=== PATIENT | female | born 1985 | race Caucasian/White ===

== ENCOUNTER → 2016-10-27 | Outpatient (CLI) | payer BC, MEDICAID ==
[~2016-10-27] MED LIST: ALBU8.5H2 IH; DCS100C PO; HYDR-3454 PO; HYDR1TAB8 OP; LRT10T PO; NITR-65 PO; ONDA-42; ONDA-42 SL; SULF-222 PO
--- OUTSIDE RECORDS SUMMARY | 2016-10-27 11:25 | XMS REPORT | Continuity of Care Document ---
Author Author [facility] Organization [facility] Address Unknown Phone Unavailable Care Team Providers Care Animal Taxonomist Name Role Phone PCP Unavailable Source Comments Some departments are not documenting in the electronic medical record. If you do not see the information that you expected, contact Release of Information in the Health Information Management department at [phone] for further assistance in locating additional records.[facility] Active Allergies and Adverse Reactions Not on File Current Medications Not on file Active Problems Not on file Social History Tobacco Use Types Packs/Day Years Used Date Never Assessed Plan of Care Health Maintenance Due Date Last Done Comments Physical (Comprehensive) 1990 Exam Pertussis Vaccine 1994 Tetanus Vaccine 2000 Cervical Cancer Screening 2004 Influenza Vaccine 04/22/2016 Results from Last 3 Months Not on file
--- NOTE | 2016-10-27 18:29 | Diagnostic Imaging Report ---
PROCEDURE: US OB SINGLE FETUS <14 WKS. TECHNIQUE: Multiple real-time grayscale images were obtained over the gravid uterus in various projections. INDICATION: Threatened miscarriage. FINDINGS: There are no prior studies available for comparison. There is a gestational sac within the uterus containing a single live fetus. heart motion is noted and a rate of 155 bpm is recorded. The crown-rump length suggests the estimated gestational age is 8 weeks 1 day +/- 1 week. There are no obvious abnormalities identified. There is a small hypoechoic area adjacent to the gestational sac. This measures 1.1 x 4.2 cm. This may represent a small subchorionic hemorrhage. The amniotic fluid volume is within normal limits. At this time, it is not certain where the placenta will develop. There is no pelvic mass or free fluid collection evident. IMPRESSION: 1. There is a single live intrauterine of approximately 8 weeks 1 day gestation +/- 1 week. EDC is June 07, 2017. 2. There are no obvious abnormalities identified. If a more sensitive evaluation of the anatomy is desired, then a short-term (10-12 weeks) follow-up ultrasound exam will be recommended for further study. 3. There does appear to be a small subchorionic hemorrhage. Dictated by: Dictated on workstation # [id number]
== END ==
LOC: RAD 11:21
PROVIDERS: ATTEND Family Medicine
DX: O20.0 Threatened abortion (principal)
CPT/HCPCS: 76801

== ENCOUNTER → 2016-11-23 | Outpatient (CLI) | payer BC, MEDICAID ==
--- NOTE | 2016-11-23 14:24 | Diagnostic Imaging Report ---
PROCEDURE: US OB SINGLE FETUS <14 WKS. TECHNIQUE: Multiple real-time grayscale images were obtained over the gravid uterus in various projections. INDICATION: survey. FINDINGS: The previous OB ultrasound exam performed on 10/27/2016 noted a single live fetus of approximately 8 weeks 1 day gestation +/- 1 week. There were no obvious abnormalities identified. On this exam, the fetus is again identified. The fetus is in variable presentation. heart motion is noted and a rate of 146 bpm is recorded. There are no obvious abnormalities identified. The crown-rump length suggests the estimated gestational age is 11 weeks 5 days. This would correspond to the measurements of the previous exam. The growth parameters are not obtained for this exam otherwise. There is no obvious abnormality identified. As suggested on the previous study, if a more sensitive evaluation of anatomy is desired, then a short-term (6-8 weeks) follow-up ultrasound exam should be obtained. The amniotic fluid volume is within normal limits. The placenta seems to be developing anteriorly. There is still unfused amnion evident. This is not unusual for a gestation of this age. The prior exam did raise the question of a small subchorionic hemorrhage. There is no sign of subchorionic hemorrhage on this study. IMPRESSION: 1. There is a single live fetus of approximately 11 weeks 5 days gestation +/- 1 week. The EDC remains June 07, 2017. 2. There are no obvious abnormalities identified. Recommendations as above. Dictated by: Dictated on workstation # [id number]
== END ==
LOC: RAD 09:18
PROVIDERS: ATTEND Family Medicine
DX: Z34.81 Encounter for supervision of other normal pregnancy, first trimester (principal); Z3A.08 8 weeks gestation of pregnancy
CPT/HCPCS: 76801

== ENCOUNTER → 2017-01-14 | Outpatient (CLI) | payer BC, MEDICAID ==
--- NOTE | 2017-01-14 18:55 | Diagnostic Imaging Report ---
PROCEDURE: US left lower extremity venous. INDICATION: Left leg numbness. COMPARISON: None. TECHNIQUE: The left lower extremity deep venous system was interrogated from the common femoral vein through the popliteal vein. These images were assessed for grayscale appearance, color and spectral Doppler blood flow, compression, and augmentation. FINDINGS: There is no evidence of intraluminal filling defect. Normal compression and augmentation is noted throughout. Soft tissues are unremarkable. IMPRESSION: 1. No sonographic evidence of deep venous thrombosis in the left lower extremity. Dictated by: Dictated on workstation # [id number]
== END ==
LOC: RAD 17:58
PROVIDERS: ATTEND Family Medicine
DX: R20.0 Anesthesia of skin (principal)

== ENCOUNTER → 2017-01-24 | Outpatient (CLI) | payer BC, MEDICAID ==
[~2017-01-24] MED LIST changes: +PREN-8 PO
--- NOTE | 2017-01-24 16:21 | Diagnostic Imaging Report ---
INDICATION: Undergoing anatomical assessment. TECHNIQUE: Multiple real-time grayscale images were obtained over the gravid uterus. COMPARISON: None. FINDINGS: Placenta is posterior without evidence for previa. Normal amount of amniotic fluid appears to be present. Cervical length is 2.9 cm. There is a suggestion of asymmetric widening at the level of the internal os with suggestion of some funneling. This extends for approximately 15 mm in length. The visualized anatomical structures appearing unremarkable. However, the urinary bladder as well as the intracranial structures are overall limited in assessment given their positioning. Biometrical measurements are as follows: Biparietal 4.8 cm, age 20 weeks 5 days. Head circumference 17.8 cm, age 20 weeks 2 days. Abdominal circumference 14.6 cm, age 20 weeks 0 days. Femur length 3.6 cm, age 21 weeks 4 days. Sonographic estimate age: 20 weeks 5 days. Sonographic estimated date of delivery: 06-08-17. Estimated Weight: 367 gm (+/- 54 gm). LMP percentile: 48%. heart rate: 149 beats per minute. Cervical length: 2.9 cm. number: 1 of 1. IMPRESSION: Single viable intrauterine with an estimated age of 20 weeks 5 days for an estimated date of delivery June 08, 2017. Current estimated weight at the 48th percentile. No abnormalities noted at this time. However, the bladder and portions of the intracranial structures are not well assessed given positioning. Additionally, there is some early funneling suggested about the internal portions of the cervix. Consideration may be given to short-term followup imaging for reassessment. Dictated by: Dictated on workstation # [id number]
== END ==
LOC: RAD 14:10
PROVIDERS: ATTEND Family Medicine
DX: Z36 Encounter for antenatal screening of mother (principal); Z3A.20 20 weeks gestation of pregnancy
CPT/HCPCS: 76805; 76817

== ENCOUNTER 2017-01-26 15:02 | Outpatient (CLI) | payer BC, MEDICAID ==
[~2017-01-26] VITALS: Ht 165.1 cm; Wt 87.1 kg
[~2017-01-26 15:02] MED LIST changes: -PREN-8 PO
[2017-01-26 15:11] VITALS: BP 120/68
[2017-01-26] MEDS ORDERED: PREN-8 PO (15:15)
[2017-01-26 15:40] LABS: BASOPHILS % (AUTO) 0 % (0-10); EOSINOPHILS % (AUTO) 0 % (0-10); LYMPHOCYTES # (AUTO) 1.5 X 10^3 (1.0-4.0); LYMPHOCYTES % (AUTO) 12 % (12-44); MEAN CORPUSCULAR HEMOGLOBIN 34 PG (25-34); MEAN CORPUSCULAR HGB CONC 34 G/DL (32-36); MEAN CORPUSCULAR VOLUME 100 FL (80-99); MEAN PLATELET VOLUME 10.8 FL (7.4-10.4); MONOCYTES # (AUTO) 0.5 X 10^3 (0.0-1.0); MONOCYTES % (AUTO) 4 % (0-12); NEUTROPHILS # (AUTO) 10.1 X 10^3 (1.8-7.8); NEUTROPHILS % (AUTO) 83 % (42-75); PLATELET COUNT 176 10^3/uL (130-400); RED BLOOD COUNT 3.82 10^6/uL (4.35-5.85); RED CELL DISTRIBUTION WIDTH 14.7 % (10.0-14.5); WHITE BLOOD COUNT 12.1 10^3/uL (4.3-11.0)
[2017-01-27] MEDS ORDERED: HYDR-3812 PO (07:45)
[2017-01-27] MEDS ORDERED: INDO25CA PO (07:45)
== END 2017-01-26 15:33 | disposition home or self-care (01) ==
LOC: PREOP 15:02
PROVIDERS: ATTEND Obstetrics & Gynecology
DX: Z01.812 Encounter for preprocedural laboratory examination (principal); Z11.2 Encounter for screening for other bacterial diseases; O26.872 Cervical shortening, second trimester; Z3A.20 20 weeks gestation of pregnancy
CPT/HCPCS: 36415; 80306; 85025; 87081

== ENCOUNTER 2017-01-27 06:05 | Day surgery (SDC) | payer BC, MEDICAID ==
[~2017-01-27] VITALS: Ht 165.1 cm; Wt 87.1 kg
[~2017-01-27 06:05] MED LIST changes: +PREN-8 PO
[2017-01-27] MEDS: LACTATED RINGERS 1,000 ML IV PRN ×2 (06:30→07:00)
[2017-01-27 06:53] VITALS: BP 105/61
[2017-01-27] MEDS ORDERED: LACTATED RINGERS 1,000 ML IV ONE (06:57)
[2017-01-27] MEDS ORDERED: fentaNYL INJECTION 100 MCG/2 ML AMP ONE (06:57)
--- NOTE | 2017-01-27 07:41 | Progress Note-Pre Operative ---
Pre-Operative Progress Note H&P Reviewed The H&P was reviewed, patient examined and no changes noted. Date Seen by Provider: Jan 27, 2017 Time Seen by Provider: 07:40 Date H&P Reviewed: Jan 27, 2017 Time H&P Reviewed: 07:41 Pre-Operative Diagnosis: Shortened cervix, hx of leep LEXII ORTEGA DO Jan 27, 2017 7:41 am
[2017-01-27] MEDS ORDERED: D5 LR IV SOLUTION 1,000 ML IV SCH (07:42)
--- NOTE | 2017-01-27 07:44 | Discharge Inst-Women's Service ---
Discharge Inst-Women's Serv Depart Medication/Instructions New, Converted or Re-Newed RX: RX on Chart Consults/Follow Up Additional Follow Up: Yes Orders/Referrals Dr. Ortega in 7-10 days Activity Activity: Activity as Tolerated NO SMOKING: NO SMOKING Nothing Inside Vagina: No Douching, No [place], No Tampons Diet Discharge Diet: No Restrictions Symptoms to Report to : Bleeding Excessive, Pain Increased, Fever Over 101 Degrees F, Vaginal Bleeding Increase, Questions/Concerns For Any Problems or Questions: Contact Your Physician Skin/Wound Care Bathing Instructions: Shower (x 2 weeks) LEXII ORTEGA DO Jan 27, 2017 7:44 am
[2017-01-27] MEDS ORDERED: HYDROcodone/APAP 5 MG/325 MG (LORTAB) TAB PO PRN (07:45)
[2017-01-27] MEDS ORDERED: ONDANSETRON 4 MG/2 ML (SDV) Z0FRAN IVP PRN ×2 (07:45→08:30)
[2017-01-27] MEDS ORDERED: HYDR-3812 PO (07:45)
[2017-01-27] MEDS ORDERED: INDOMETHACIN 25 MG (INDOCIN) CAP PO ONE (07:45)
[2017-01-27] MEDS ORDERED: INDO25CA PO (07:45)
[2017-01-27 09:05] VITALS: BP 113/67
--- NOTE | 2017-01-27 09:11 | Progress Note-Post Operative ---
Post-Operative Progess Note Surgeon (s)/Ip Network Architect (s) Surgeon LEXII ORTEGA DO Ip Network Architect: none Pre-Operative Diagnosis Shortened cervix, hx of leep Post-Operative Diagnosis same Procedure & Operative Findings Date of Procedure 01/27/17 Procedure Performed/Findings Lopez cerclage Procedure in detail: Patient was taken to the operating room where spinal analgesia is found be adequate. She's placed in the dorsal lithotomy position, prepped and draped in normal sterile fashion. The bladder was emptied using straight catheterization and a total of 200 mL's of clear urine is emptied. I didn't perform a bimanual massage and the patient after heart tones are confirmed using Doppler auscultation in the 140s. The cervix is closed, however, there is no significant degree of thickness noted. I would assess it is 80-70 percent effaced. I then placed a weighted speculum into the patient's vagina, a right angle retractor is used to visualize the cervix. It is grasped at the 12 o' clock position using a ring forcep. A Lopez cerclage was placed using 4 separate throws of the needle, and using #1 [place] dyed suture. It is tied at the 12 o'clock position after the ring forcep was removed. 2 separate knots are placed for easy identification. The vagina is copiously irrigated using normal saline and there is no active bleeding noted from the cerclage. All other insurance are removed from the patient's vagina. The patient is examined again after the procedures complete. Cerclage is noted in place with minimal tension and appropriate placement and cervical thickness. The patient tolerated the procedure well and is taken to the recovery area in stable condition. heart tones are again obtained after the procedures complete and found in the 140s. Anesthesia Type spinal Estimated Blood Loss Estimated blood loss (mL): 20 mL Specimens/Packing Specimens Removed none LEXII ORTEGA DO Jan 27, 2017 9:11 am
[2017-01-27 09:35] VITALS: BP 115/66
[2017-01-27 10:05] VITALS: BP 109/61
[2017-01-27 13:00] VITALS: BP 109/61
== END 2017-01-27 13:00 | disposition home or self-care (01) ==
LOC: SDC 06:05
PROVIDERS: ATTEND Obstetrics & Gynecology
DX: O26.872 Cervical shortening, second trimester (principal); O34.42 Maternal care for other abnormalities of cervix, second trimester; O99.512 Diseases of the respiratory system complicating pregnancy, second trimester; J45.909 Unspecified asthma, uncomplicated; Z3A.20 20 weeks gestation of pregnancy
CPT/HCPCS: 86850; 86900; 86901

== ENCOUNTER → 2017-03-09 | Outpatient (CLI) | payer BC, MEDICAID ==
[~2017-03-09] MED LIST changes: +HYDR-3812 PO; +INDO25CA PO
--- NOTE | 2017-03-09 18:20 | Diagnostic Imaging Report ---
INDICATION: Followup bladder and head structures. The patient had cerclage procedure of the cervix performed. TECHNIQUE: Multiple real-time grayscale images were obtained over the gravid uterus. COMPARISON: 01/24/2017 FINDINGS: The heart rate is 147 beats per minute. The placenta is posterior and is fundal. No placenta previa. The bladder and the intracranial structures appear grossly unremarkable. No evidence of hydrocephalus. JOSE is 13.7 cm. The head position is cephalic. The cervix is not well demonstrated as its obscured by the head. IMPRESSION: Live intrauterine . The head and the bladder are better seen on the current exam with no definite abnormality. Dictated by: Dictated on workstation # [id number]
== END ==
LOC: RAD 10:21
PROVIDERS: ATTEND Obstetrics & Gynecology
DX: Z36 Encounter for antenatal screening of mother (principal); Z3A.00 Weeks of gestation of pregnancy not specified
CPT/HCPCS: 76816

== ENCOUNTER 2017-03-17 15:32 | Outpatient (CLI) | payer BC, MEDICAID ==
[~2017-03-17] VITALS: Ht 165.1 cm; Wt 93.5 kg
[2017-03-17] VITALS (8 sets, daily range): BP systolic 121–148; BP diastolic 57–78
[2017-03-17] MEDS ORDERED: D5 LR IV SOLUTION 1,000 ML IV SCH (16:00)
[2017-03-17] MEDS ORDERED: D5 LR IV SOLUTION 1,000 ML IV ONE (16:01)
[2017-03-17] MEDS ORDERED: BETAMETHASONE ACE/NA PHOS 6 MG/ML (CELESTONE SOLUSPAN) ONE (16:03)
[2017-03-17] MEDS ORDERED: MAGNESIUM 4 GM/100 ML IVPB 100 ML IV ONE (16:03)
[2017-03-17] MEDS ORDERED: MAGNESIUM 2 GM/50 ML IVPB 50 ML IV ONE (16:04)
[2017-03-17] MEDS ORDERED: MAGNESIUM SULFATE DRIP 500 ML IV ONE (16:04)
[2017-03-17] MEDS ORDERED: AMPICILLIN 2000 MG INJECTION (IM/IV) ONE (16:11)
[2017-03-17] MEDS ORDERED: NS (IVPB) 50 ML ONE (16:12)
[2017-03-17] MEDS ORDERED: AMPICILLIN INJECTION 2,000 MG in NS (IVPB) 50 ML IV ONE (16:22)
[2017-03-17] MEDS ORDERED: MAGNESIUM 2 GM/50 ML IVPB 2 GM in MAGNESIUM 4 GM/100 ML IVPB 100 ML IV ONE (16:25)
[2017-03-17] MEDS ORDERED: BETAMETHASONE ACE/NA PHOS 6 MG/ML (CELESTONE SOLUSPAN) IM SCH (16:28)
[2017-03-17] MEDS ORDERED: AZITHROMYCIN INJECTION 500 MG in NS (IVPB) 250 ML IV NR (16:30)
--- NOTE | 2017-03-17 17:03 | History & Physical-OB ---
OB - Chief Complaint & HPI Date/Time Date of Admission: Date of Admission: 03/17/2017 Time Seen by Provider: 16:00 Chief Complaint/History OB-Reason for Admission/Chief: Rupture of Membranes Hx : 2 Hx Para: 0 Expected Date of Delivery: Jun 12, 2017 Gestational Age in Weeks: 27 Gestational Age in Days: 4 Other reason for admission: This 31-year-old female is a patient established to my office who is undergoing care which was complicated by shortened cervix and history of cervical incompetence. The patient underwent a cerclage placement at 18 weeks. Since that time her has been uncomplicated. The patient has not had any episodes of bleeding, contractions, or any other signs of labor. The patient reports to me and the nurse that she was this week, and despite my restrictions for complete pelvic rest, decided to proceed with intercourse with her new denied of their marriage. The patient reports the next day which was today, she was on her feet working when she had a gush of fluid that she initially thought was bladder leakage. However, she continued to drain fluid soaking her close and proceeded to the emergency department with suspicion for rupture membranes. Admission Nurse Assessment Rev: Yes History of Labs O neg Antibody neg 1 hr GTT 89 Allergies and Home Medications Allergies Coded Allergies: No Known Drug Allergies (Unverified , 05/11/13) Home Medications Albuterol 8.5 Gm Hfa.aer.ad, 2 PUFF IH Q4H PRN for WHEEZING, (Reported) PRN WHEEZES Hydrocodone/Acetaminophen 1 Each Tablet, 1 TAB PO Q4H PRN for PAIN-MODERATE, #15 Prescribed by: LEXII ORTEGA on 01/27/17 0745 Indomethacin 25 Mg Capsule, 25 MG PO Q6H, #6 Prescribed by: LEXII ORTEGA on 01/27/17 0745 Loratadine 10 Mg Box, 10 MG PO DAILY, (Reported) Vit W-Ca,Fe,FA(<1 mg) 1 Each Tablet, 1 EACH PO DAILY, (Reported) OB - History Hx of Present Care: Yes Ultrasounds: Abnormal US findings (shortened cervix) Obstetrical Complications: Other (cerclage placement at 18 weeks) Medical Complications: None Delivery History Hx Blood Disorders: No Adverse Rxn to Tranfusion: No Patient Past Medical History History of infertility, endometriosis Immunizations Date of Pneumonia Vaccine: Feb 19, 2014 Date of Influenza Vaccine: May 22, 2014 OB - Admission Exam Physical Exam Date Seen by Provider: Mar 17, 2017 Time Seen by Provider: 16:00 HEENT: NCAT Heart: Rhythm Normal Lungs: Clear Abdomen: Gravid Extremities: Normal Reflexes: Normal Cervical Dilatation: None (sterile speculum exam done cerclage in place, no bleeding, no dilation noted on speculum exam) Amniotic Fluid: Clear Heart Rate: 130's Accelerations: Accelerations Present Decelerations: No Decelerations Short Term Variability: Present Continuous Mining 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
[2017-03-17] MEDS ORDERED: MAGNESIUM SULFATE DRIP 500 ML IV SCH (17:10)
--- NOTE | 2017-03-17 17:11 | Discharge Summary ---
Diagnosis/Chief Complaint Date of Admission 03/17/2017 Date of Discharge 03/17/2017 Discharge Date: Mar 17, 2017 Discharge Time: 17:30 Admission Diagnosis Admission Diagnosis Rupture of membranes 27 weeks, PTL Discharge Diagnosis Same Reason Hospital Visit This 31-year-old female is a patient established to my office who is undergoing care which was complicated by shortened cervix and history of cervical incompetence. The patient underwent a cerclage placement at 18 weeks. Since that time her has been uncomplicated. The patient has not had any episodes of bleeding, contractions, or any other signs of labor. The patient reports to me and the nurse that she was this week, and despite my restrictions for complete pelvic rest, decided to proceed with intercourse with her new denied of their marriage. The patient reports the next day which was today, she was on her feet working when she had a gush of fluid that she initially thought was bladder leakage. However, she continued to drain fluid soaking her close and proceeded to the emergency department with suspicion for rupture membranes. Discharge Summary Hospital Course Hospital Course Patient admitted IV fluids started and CBC with type and screen sent. She was started on ampicillin and azithromycin for latency. Betamethasone 12 mg 1 dose was given. Magnesium sulfate 6 g bolus given IV with a 2 g infusion rate thereafter. Bedside ultrasound performed which confirmed vertex presentation. Sterile speculum exam performed to confirm cerclages in place with no evidence of bleeding or tearing of the cervix, no evidence of cervical dilatation Procedures None. Discharge Physical Examination Allergies: Coded Allergies: No Known Drug Allergies (Unverified , 05/11/13) General Appearance: Alert, Oriented X3 HEENT: Atraumatic Respiratory: Clear to Auscultation Cardiovascular: Regular Rate Abdominal: Other (gravid) Psych/Mental Status: Mental Status NL Discussion & Recommendations Recommendation was made to the patient to transfer to a higher level tertiary care center. [facility] was the first place that I contacted and I spoke with Dr. Gonsalez who notify me the absence of a perinatologist at this time. The facility still has neonatology capabilities however. I discussed the patient possible transfer to [place] or [place], however the patient and her family are concerned about a prolonged stay in the NICU and proximity of those locations to their home. Dr. Gonsalez was willing to accept transfer, ambulance service notified and transfer initiated with IV fluids running including the magnesium sulfate infusion. Discharge Home Medications Reviewed and agree with Discharge Medication list on patient's Discharge Instruction sheet Instructions to Patient/Family Please see electonic discharge instructions given to patient. Clinical Quality Measures DVT/VTE Risk/Contraindication: VTE Present on Admission: No RFS Level Per Nursing on Admit: 1=Low/No VTE PPX Contraindications-Pharm: Pt at low risk Contraindications-Mechi: Pt at low risk LEXII ORTEGA DO Mar 17, 2017 5:11 pm
[2017-03-17 17:18] LABS: BASOPHILS % (AUTO) 0 % (0-10); EOSINOPHILS # (AUTO) 0.1 10^3/uL (0.0-0.3); EOSINOPHILS % (AUTO) 0 % (0-10); LYMPHOCYTES # (AUTO) 1.6 X 10^3 (1.0-4.0); LYMPHOCYTES % (AUTO) 12 % (12-44); MEAN CORPUSCULAR HEMOGLOBIN 34 PG (25-34); MEAN CORPUSCULAR HGB CONC 34 G/DL (32-36); MEAN CORPUSCULAR VOLUME 99 FL (80-99); MEAN PLATELET VOLUME 11.3 FL (7.4-10.4); MONOCYTES # (AUTO) 0.7 X 10^3 (0.0-1.0); MONOCYTES % (AUTO) 5 % (0-12); NEUTROPHILS # (AUTO) 11.2 X 10^3 (1.8-7.8); NEUTROPHILS % (AUTO) 83 % (42-75); PLATELET COUNT 158 10^3/uL (130-400); RED CELL DISTRIBUTION WIDTH 14.3 % (10.0-14.5); WHITE BLOOD COUNT 13.5 10^3/uL (4.3-11.0)
== END 2017-03-17 17:55 | disposition short-term general hospital (02) ==
LOC: LDRP 15:32 → WSo 15:32 → ENPENDDIS 17:30 → WSo 17:55
PROVIDERS: ATTEND Obstetrics & Gynecology
DX: O42.012 Preterm premature rupture of membranes, onset of labor within 24 hours of rupture, second trimester (principal); Z3A.27 27 weeks gestation of pregnancy
CPT/HCPCS: 36415; 85025; 87081; 96361; 96372; 96374; 96375; 96376; 99213

== ENCOUNTER 2017-03-26 18:50 | Emergency (ER) | payer BC, MEDICAID ==
[~2017-03-26] VITALS: Ht 165.1 cm; Wt 93.5 kg
[2017-03-26 19:50] LABS: BASOPHILS % (AUTO) 0 % (0-10); EOSINOPHILS # (AUTO) 0.1 10^3/uL (0.0-0.3); EOSINOPHILS % (AUTO) 1 % (0-10); LYMPHOCYTES # (AUTO) 1.7 X 10^3 (1.0-4.0); LYMPHOCYTES % (AUTO) 12 % (12-44); MEAN CORPUSCULAR HEMOGLOBIN 34 PG (25-34); MEAN CORPUSCULAR HGB CONC 33 G/DL (32-36); MEAN CORPUSCULAR VOLUME 103 FL (80-99); MEAN PLATELET VOLUME 9.4 FL (7.4-10.4); MONOCYTES # (AUTO) 0.7 X 10^3 (0.0-1.0); MONOCYTES % (AUTO) 5 % (0-12); NEUTROPHILS # (AUTO) 11.1 X 10^3 (1.8-7.8); NEUTROPHILS % (AUTO) 81 % (42-75); PLATELET COUNT 280 10^3/uL (130-400); RED BLOOD COUNT 2.78 10^6/uL (4.35-5.85); RED CELL DISTRIBUTION WIDTH 14.7 % (10.0-14.5); WHITE BLOOD COUNT 13.7 10^3/uL (4.3-11.0)
[2017-03-26 20:10] LABS: ALANINE AMINOTRANSFERASE 17 U/L (0-55); ALBUMIN 2.8 GM/DL (3.2-4.5); ANION GAP 10 MMOL/L (5-14); ASPARTATE AMINO TRANSFERASE 16 U/L (5-34); BILIRUBIN,TOTAL 0.5 MG/DL (0.1-1.0); BLOOD UREA NITROGEN 12 MG/DL (7-18); BUN/CREATININE RATIO 16; CALCIUM 8.9 MG/DL (8.5-10.1); CARBON DIOXIDE 26 MMOL/L (21-32); CHLORIDE 104 MMOL/L (98-107); CREATININE SERUM 0.74 MG/DL (0.60-1.30); GFR ESTIMATED > 60; GLUCOSE 101 MG/DL (70-105); POTASSIUM 3.6 MMOL/L (3.6-5.0); SODIUM 140 MMOL/L (135-145); TOTAL PROTEIN 5.4 GM/DL (6.4-8.2)
[2017-03-26] MEDS ORDERED: MILK OF MAGNESIA 400 MG/5 ML 30 ML UDC PO ONE (20:15)
[2017-03-26] MEDS ORDERED: DOCUSATE SODIUM 100 MG (COLACE) CAP PO ONE (20:15)
[2017-03-26 20:21] LABS: BILIRUBIN,URINE NEGATIVE (NEGATIVE); KETONES,URINE NEGATIVE (NEGATIVE); LEUKOCYTE ESTERASE ,URINE 1+ (NEGATIVE); NITRITE,URINE POSITIVE (NEGATIVE); PH,URINE 7 (5-9); PROTEIN,URINE 4+ (NEGATIVE); UROBILINOGEN,URINE NORMAL (NORMAL)
[2017-03-26] MEDS ORDERED: TRIM/SULFAMETH 160/800 (SEPTRA DS) TAB PO STA (20:34)
[2017-03-26] MEDS ORDERED: SULF1TAB35 PO (21:18)
--- NOTE | 2017-03-26 21:19 | ED GU-Female ---
General Chief Complaint: Abdominal/GI Problems Stated Complaint: SHARP STOMACH PAIN (HAD ON TUESDAY) Nursing Triage Note: patient reports having a on tuesday and was released tuesday, patient reports was trying to have a BM about 30 min [employer] and developed diffuse abdomen pain Nursing Sepsis Screen: No Definite Risk History of Present Illness Time seen by provider: 19:15 Initial Comments Evaluation for lower abdominal pain. Patient had emergent on 03/20/17 at approximately 27 weeks 3 days, at [place] by Dr. Monten[place]. The baby did not survive. She was discharged on 03/23/17. There was an injury to her bladder, that required repair and indwelling Jiménez catheter. She denies bowel movement today. She is not taking stool softeners as directed at time of discharge. Timing/Duration: just prior to arrival Severity/Quality: mild Location: RLQ, LLQ Radiation: none Activities at Onset: other (attempting to defecate) Prior Genitourinary Problems: recent trauma Associated Symptoms: denies symptoms Allergies and Home Medications Allergies Coded Allergies: No Known Drug Allergies (Unverified , 05/11/13) Home Medications Albuterol 8.5 Gm Hfa.aer.ad, 2 PUFF IH Q4H PRN for WHEEZING, (Reported) PRN WHEEZES Hydrocodone/Acetaminophen 1 Each Tablet, 1 TAB PO Q4H PRN for PAIN-MODERATE, #15 Prescribed by: LEXII ELLISON on 01/27/17 0745 Indomethacin 25 Mg Capsule, 25 MG PO Q6H, #6 Prescribed by: LEXII ELLISON on 01/27/17 0745 Loratadine 10 Mg Box, 10 MG PO DAILY, (Reported) Vit W-Ca,Fe,FA(<1 mg) 1 Each Tablet, 1 EACH PO DAILY, (Reported) Sulfamethoxazole/Trimethoprim 1 Each Tablet, 1 EACH PO BID, #14 Ref 0 Prescribed by: SHANNAN ATKINSON on 03/26/172117 Constitutional: no symptoms reported, see HPI Gastrointestinal: RLQ, LLQ, see HPI Genitourinary: see HPI, other (indwelling catheter with leg bag) : No Past Uqutelb-Efxudm-Ydqjii Hx Patient Social History Alcohol Use: Denies Use Recreational Drug Use: No Smoking Status: Current Everyday Smoker Type Used: Cigarettes Recent Foreign Travel: No Contact w/Someone Who Travel: No Recent Infectious Disease Expo: No Recent Hopitalizations: No Immunizations Up To Date Date of Pneumonia Vaccine: Feb 19, 2014 Date of Influenza Vaccine: May 22, 2014 Seasonal Allergies Seasonal Allergies: Yes Surgeries HX Surgeries: Yes (right ankle screw, D&C, laparoscopy) Surgeries: Section, Gallbladder, Orthopedic Respiratory Hx Respiratory Disorders: Yes (exercise induced asthma, ) Respiratory Disorders: Asthma Cardiovascular Hx Cardiac Disorders: No Neurological Hx Neurological Disorders: No Reproductive System : No Female Reproductive Disorders: Endometriosis Genitourinary Hx Genitourinary Disorders: No Genitourinary Disorders: UTI-Chronic Gastrointestinal Hx Gastrointestinal Disorders: No Musculoskeletal Hx Musculoskeletal Disorders: No Endocrine Hx Endocrine Disorders: No HEENT HX ENT Disorders: No Cancer Hx Cancer: No Psychosocial Hx Psychiatric Problems: Yes Behavioral Health Disorders: Anxiety, Depression Integumentary HX Skin/Integumentary Disorder: No Blood Transfusions Hx Blood Disorders: No Adverse Reaction to a Blood Tr: No Reviewed Nursing Assessment Reviewed/Agree w Nursing PMH: Yes Family Medical History Family Medial History: Abdominal aortic aneurysm Alcoholism Cancer Cancer of colon Family history: Allergy Family history: Arthritis Family history: Asthma Family history: Breast disease Family history: Diabetes mellitus Family history: Gastrointestinal disease Family history: Hypertension Heart disease History of - respiratory disease Infertile No Family History of: Trousdale's disease Aphasia Cataract Chest pain Congenital heart disease Congestive heart failure Cystic fibrosis Dementia Dysphagia Family history: Alzheimer's disease Family history: Cardiovascular disease Family history: Coronary thrombosis Family history: Glaucoma Family history: Osteoporosis Family history: Thyroid disorder Headache Hearing loss Hereditary disease History of - anemia History of - disorder Human immunodeficiency virus (HIV) seropositivity Hypercholesterolemia Kidney disease Malignant neoplasm of lung Myocardial infarction Parkinson's disease Prostate cancer Psychotic disorder Seizure disorder Stroke Tuberculosis Visual impairment Physical Exam Vital Signs Vital Sign - Last 12Hours 03/26/17 19:21 Temp 98.4 Pulse 75 Resp 18 B/P (MAP) 131/79 Pulse Ox 100 Capillary Refill : Less Than 3 Seconds General Appearance: WD/WN, no apparent distress Neck: non-tender, full range of motion, normal inspection Cardiovascular: normal peripheral pulses, regular rate, rhythm, no edema, no murmur Respiratory: chest non-tender, lungs clear, normal breath sounds Gastrointestinal: normal bowel sounds, soft, No guarding, No rebound, other (C- section incision intact with no drainage, erythema, warmth, fluctuance or induration.) Neurologic/Psychiatric: no motor/sensory deficits, alert, normal mood/affect, oriented x 3 Skin: normal color, warm/dry Progress/Results/Core Measures Results/Orders Lab Results Laboratory Tests Test 03/26/17 19:42 03/26/17 20:14 Range/Units White Blood Count 13.7 H 4.3-11.0 10^3/uL Red Blood Count 2.78 L 4.35-5.85 10^6/uL Hemoglobin 9.3 L 11.5-16.0 G/DL Hematocrit 29 L 35-52 % Mean Corpuscular Volume 103 H 80-99 FL Mean Corpuscular Hemoglobin 34 25-34 PG Mean Corpuscular Hemoglobin Concent 33 32-36 G/DL Red Cell Distribution Width 14.7 H 10.0-14.5 % Platelet Count 280 130-400 10^3/uL Mean Platelet Volume 9.4 7.4-10.4 FL Neutrophils (%) (Auto) 81 H 42-75 % Lymphocytes (%) (Auto) 12 12-44 % Monocytes (%) (Auto) 5 0-12 % Eosinophils (%) (Auto) 1 0-10 % Basophils (%) (Auto) 0 0-10 % Neutrophils # (Auto) 11.1 H 1.8-7.8 X 10^3 Lymphocytes # (Auto) 1.7 1.0-4.0 X 10^3 Monocytes # (Auto) 0.7 0.0-1.0 X 10^3 Eosinophils # (Auto) 0.1 0.0-0.3 10^3/uL Basophils # (Auto) 0.0 0.0-0.1 10^3/uL Sodium Level 140 135-145 MMOL/L Potassium Level 3.6 3.6-5.0 MMOL/L Chloride Level 104 98-107 MMOL/L Carbon Dioxide Level 26 21-32 MMOL/L Anion Gap 10 5-14 MMOL/L Blood Urea Nitrogen 12 7-18 MG/DL Creatinine 0.74 0.60-1.30 MG/DL Estimat Glomerular Filtration Rate > 60 BUN/Creatinine Ratio 16 Glucose Level 101 70-105 MG/DL Calcium Level 8.9 8.5-10.1 MG/DL Total Bilirubin 0.5 0.1-1.0 MG/DL Aspartate Amino Transf (AST/SGOT) 16 5-34 U/L Alanine Aminotransferase (ALT/SGPT) 17 0-55 U/L Alkaline Phosphatase 81 40-136 U/L Total Protein 5.4 L 6.4-8.2 GM/DL Albumin 2.8 L 3.2-4.5 GM/DL Urine Color YELLOW Urine Clarity SLIGHTLY CLOUDY Urine pH 7 5-9 Urine Specific [place] 1.010 L 1.016-1.022 Urine Protein 4+ NEGATIVE Urine Glucose (UA) NEGATIVE NEGATIVE Urine Ketones NEGATIVE NEGATIVE Urine Nitrite POSITIVE H NEGATIVE Urine Bilirubin NEGATIVE NEGATIVE Urine Urobilinogen NORMAL NORMAL MG/DL Urine Leukocyte Esterase 1+ H NEGATIVE Urine RBC (Auto) 5+ H NEGATIVE Urine RBC >100 H /HPF Urine WBC 10-25 H /HPF Urine Crystals NONE /LPF Urine Bacteria FEW H /HPF Urine Casts NONE /LPF Urine Mucus NEGATIVE /LPF Urine Culture Indicated YES Micro Results Microbiology 03/26/17 Urine Culture - Preliminary, Resulted Escherichia Coli My Orders Orders - SHANNAN ATKINSON Cbc With Automated Diff (03/26/17 19:28) Comprehensive Metabolic Panel (03/26/17 19:28) Ua Culture If Indicated (03/26/17 19:28) Magnesium Hydroxide Oral Susp (Mom Oral (03/26/17 20:15) Docusate Sodium Capsule (Colace Capsule) (03/26/17 20:15) Urine Culture (03/26/17 20:14) Sulfamethoxazole/Trimet Ds Tab (Bactrim (03/26/17 20:34) Medications Given in ED Vital Signs/I&O Blood Pressure Mean: 96 Progress Note : Time: 19:15 Progress Note Initial evaluation completed recommended labs and will reevaluate. 2000 labs indicate UTI, recommended antibiotics and follow-up with Dr. White or Dr. Ellison early next week. Reviewed instructions for discharge and when to return to the emergency department, patient verbalized understanding. Departure Impression Impression: Primary Impression: Urinary tract infection Qualified Codes: T83.511A - Infection and inflammatory reaction due to indwelling urethral catheter, initial encounter; N39.0 - Urinary tract infection , site not specified Additional Impression: Status post Disposition: 01 HOME, SELF-CARE Condition: Improved Departure-Patient Inst. Decision time for Depature: 21:00 Referrals: TO GARCIA MD (PCP/Family) Primary Care Physician Patient Instructions: Urinary Tract Infection, Adult (DC) Add. Discharge Instructions: Empty catheter bag frequently. Increase water intake. Call Dr. White on Tuesday and notify of urinary tract infection. Return to emergency department for fever greater than 100, shortness of breath , increased abdominal pain, or any new problems. Obtain prescription at [facility] pharmacy tomorrow, intake as prescribed. Take [id number] stool softener twice daily. All discharge instructions reviewed with patient and/or family. Voiced understanding. Scripts Nitrofurantoin Monohyd/M-Cryst (Macrobid 100 mg Capsule) 100 Mg Capsule 1 TAB PO Q12H, #20 CAP 0 Refills Prov: SHANNAN ATKINSON 03/27/17 Sulfamethoxazole/Trimethoprim (Bactrim Ds Tablet) 1 Each Tablet 1 EACH PO BID, #14 TAB 0 Refills Prov: SHANNAN ATKINSON 03/26/17 Copy Copies To 1: LEXII ELLISON AMY ARNP Mar 26, 2017 21:19
[2017-03-26 21:22] VITALS: BP 134/82
[2017-03-27] MEDS ORDERED: NITR-65 PO (20:26)
== END 2017-03-26 21:22 | disposition home or self-care (01) ==
LOC: EDUNIT# 18:50 → ER 18:52
DX: O86.20 Urinary tract infection following delivery, unspecified (principal); O99.345 Other mental disorders complicating the puerperium; F41.9 Anxiety disorder, unspecified; F32.9 Major depressive disorder, single episode, unspecified; O99.53 Diseases of the respiratory system complicating the puerperium; J45.909 Unspecified asthma, uncomplicated; O99.335 Smoking (tobacco) complicating the puerperium; F17.210 Nicotine dependence, cigarettes, uncomplicated; Z80.9 Family history of malignant neoplasm, unspecified; Z82.49 Family history of ischemic heart disease and other diseases of the circulatory system; Z87.59 Personal history of other complications of pregnancy, childbirth and the puerperium
CPT/HCPCS: 36415; 80053; 81000; 85025; 87077; 87088; 87186; 99283